=== PATIENT | female | born 1960 | race African-American/Black ===

== ENCOUNTER → 2024-12-18 | Day surgery (SDC) | payer OTHER, BC ==
[~2024-12-18] MED LIST: CENTRUM ADULTS1 EACH PO; LISINOPRIL-HCT1 EACH PO; OMEGA 3 1,0001 EACH PO; ZESTRIL10 MG PO
[2024-12-18] MEDS: LACTATED RINGER'S 1,000 ML ONE (10:10)
[2024-12-18 11:50] VITALS: TEMP 97.2
[2024-12-18 12:15] VITALS: BP 127/80; PULSE 76; RESP 16; O2SAT 97
== END | disposition home or self-care (01) ==
LOC: OR 09:52
PROVIDERS: ATTEND Internal Medicine Gastroenterology
DX: K59.09 Other constipation (principal); K63.5 Polyp of colon; K57.30 Diverticulosis of large intestine without perforation or abscess without bleeding; K64.8 Other hemorrhoids; Z71.3 Dietary counseling and surveillance; I10 Essential (primary) hypertension; Z71.89 Other specified counseling; Z88.0 Allergy status to penicillin; Z01.810 Encounter for preprocedural cardiovascular examination; Z79.1 Long term (current) use of non-steroidal anti-inflammatories (NSAID); Z79.899 Other long term (current) drug therapy; Z68.25 Body mass index [BMI] 25.0-25.9, adult
CPT/HCPCS: 45385; 93005; J7121